=== PATIENT | male | born 1990 | race African-American/Black ===

== ENCOUNTER 2016-12-15 01:46 | Emergency (ER) | payer BC, OTHER ==
[2016-12-15 02:51] VITALS: BP 127/79; PULSE 79; TEMP 98; BMI 22.9
[2016-12-15] MEDS ORDERED: FLUORESCEIN NA 1 EA STRIP ONE (03:01)
[2016-12-15] MEDS ORDERED: TETRACAINE 0.5% OPHTH SOLN 2 ML BOTTLE ONE (03:02)
[2016-12-15] MEDS ORDERED: TOBRA 0.3%/DEXAMETH 0.1% OPHTHALMIC SUSP 2.5 ML BTL OD ONE (03:16)
--- NOTE | 2016-12-15 03:21 | PDOC ---
History of Present Illness - General Chief Complaint: Eye Problem Stated Complaint: EYE PROBLEM Time Seen by Provider: 12/15/16 02:14 History Source: Patient Exam Limitations: No Limitations - History of Present Illness Initial Comments: 12/15/16 03:16 26yo Male patient presents to ED c/o right eye pain, redness, and irritation after boxing today. Patient states he was boxing with full head gear on, and after being hit he felt something got into his right eye. Visual acuity 20/50 Lt eye, 20/200 Rt eye. + corrective lens use. Patient also c/o feeling foggy in the head. Denies any other complaints at this time. Timing/Duration: 4-6 hours Severity: moderate Modifying Factors: worse with: cold therapy, eating, immobilization, medication , movement, rest, other Associated Symptoms: denies: denies symptoms, chest pain, cough, diaphoresis, fever/chills, headaches, loss of appetite, malaise, nausea/vomiting, rash, seizure, shortness of breath, syncope, weakness, other Past History - Travel Traveled outside of the country in the last 30 days: No Close contact w/someone who was outside of country & ill: No - Past Medical History Allergies/Adverse Reactions: Allergies Allergy/AdvReac Type Severity Reaction Status Date / Time No Known Allergies Allergy Verified 12/15/16 02:51 Home Medications: Ambulatory Orders NK [No Known Home Medication] 11/28/15 Other medical history: Pt denies - Psycho/Social/Smoking Cessation Hx Suicidal Ideation: No Smoking History: Never smoked Information on smoking cessation initiated: No Hx Alcohol Use: No Drug/Substance Use Hx: No Substance Use Type: None Review of Systems - Review of Systems Able to Perform ROS?: Yes Is the patient limited Brazilian proficient: No Constitutional: No: Chills, Fever HEENTM: Yes: Eye Pain, Blurred Vision (+ corrective lens use), Tearing, Nose Congestion. No: Double Vision, Cataracts, Ear Pain, Ocular Prothesis, Ear Discharge, Nose Pain, Nose Bleeding, Hearing Loss, Throat Pain, Throat Swelling , Mouth Pain, Dental Problems, Difficulty Swallowing, Mouth Swelling Neurological: No: Headache, Numbness, Paresthesia, Seizure, Tremors, Weakness, Unsteady Gait, Ataxia, Dizziness All Other Systems: Reviewed and Negative *Physical Exam - Vital Signs Last Vital Signs Temp Pulse Resp BP Pulse Ox 98.0 F 79 18 127/79 99 12/15/16 02:47 12/15/16 02:47 12/15/16 02:47 12/15/16 02:47 12/15/16 02:47 - Physical Exam General Appearance: Yes: Nourished, Appropriately Dressed, Mild Distress. No: Apparent Distress, Moderate Distress, Severe Distress HEENT: positive: EOMI, BLADIMIR, Normal Voice, Symmetrical, TMs Normal, Pharynx Normal, Nasal Congestion, Other. negative: Pharyngeal Erythema, Tonsillar Exudate, Tonsillar Erythema, Rhinorrhea, Sinus Tenderness, Orbits, TM Bulging, TM Dull, TM Erythema Neck: positive: Trachea midline, Normal Thyroid, Supple Respiratory/Chest: positive: Lungs Clear, Normal Breath Sounds. negative: Respiratory Distress, Accessory Muscle Use, Labored Respiration, Rapid RR Cardiovascular: positive: Regular Rhythm, Regular Rate Gastrointestinal/Abdominal: positive: Normal Bowel Sounds, Soft Musculoskeletal: positive: Normal Inspection. 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 IF YOU ARE UNABLE TO GET IN TO SEE YOUR NETWORK CONSULTANT FOLLOW UP WITH DR. CORBIN. EYE DROPS 2 DROPS EVERY 4 HOURS WHILE AWAKE X 2 DAY, THE 1 DROP TO AFFECTED EYE EVERY 4 HOURS X 3 DAYS. Print Language: EMIRATI - Post Discharge Activity Work/School Note: Back to Work
[2016-12-15] MEDS ORDERED: TOBRAMYCIN 0.3% OPHTH SOLN 5 ML BOTTLE ONE (03:22)
[2016-12-15] MEDS ORDERED: TETANUS AND DIPHTHERIA TOXOID 0.5 ML DISP.SYRIN IM ONE (03:24)
== END 2016-12-15 03:47 | disposition home or self-care (01) ==
LOC: JER 01:46
PROC: 3E0234Z Introduction of Serum, Toxoid and Vaccine into Muscle, Percutaneous Approach (ICD-10-PCS; principal; 2016-12-15)
DX: H10.11 Acute atopic conjunctivitis, right eye (principal)
CPT/HCPCS: 99282-25